=== PATIENT | female | born 1995 | race Caucasian/White ===

== ENCOUNTER 2018-11-15 19:01 | Emergency (ER) | payer OTHER ==
[2018-11-15 19:31] VITALS: BP 162/85; PULSE 112; RESP 18; TEMP 98.9
[2018-11-15] MEDS ORDERED: ACETAMINOPHEN TAB 500 MG TAB PO STA (19:36)
--- NOTE | 2018-11-15 19:36 | ED ---
General Adult HPI - General Stated complaint: Ankle injury Time Seen by Provider: 11/15/18 19:16 Source: patient, RN notes reviewed Mode of arrival: ambulatory Limitations: no limitations - History of Present Illness Initial comments: 23-year-old female presents to the emergency department for a chief complaint of left ankle pain. Patient was walking when she inverted her left ankle. This happened this morning. States it is painful to walk on it and bend. Denies any other injuries. Denies any pain in the foot. Denies hitting her head. Denies falling.Patient has no other complaints at this time including shortness of breath, chest pain, abdominal pain, nausea or vomiting, headache, or visual changes. - Related Data Allergies Allergy/AdvReac Type Severity Reaction Status Date / Time tobramycin Allergy Unknown Verified 11/15/18 19:24 Review of Systems ROS Statement: Those systems with pertinent positive or pertinent negative responses have been documented in the HPI. ROS Other: All systems not noted in ROS Statement are negative. Past Medical History Past Medical History: No Reported History History of Any Multi-Drug Resistant Organisms: None Reported Past Surgical History: No Surgical Hx Reported Past Psychological History: No Psychological Hx Reported Smoking Status: Current every day smoker Past Alcohol Use History: Occasional Past Drug Use History: None Reported General Exam Limitations: no limitations General appearance: alert, in no apparent distress Head exam: Present: atraumatic, normocephalic, normal inspection Eye exam: Present: normal appearance, PERRL, EOMI. Absent: scleral icterus, conjunctival injection, periorbital swelling ENT exam: Present: normal exam, mucous membranes moist Neck exam: Present: normal inspection. Absent: tenderness, meningismus, lymphadenopathy Respiratory exam: Present: normal lung sounds bilaterally. Absent: respiratory distress, wheezes, rales, rhonchi, stridor Cardiovascular Exam: Present: regular rate, normal rhythm, normal heart sounds. Absent: systolic murmur, diastolic murmur, rubs, gallop, clicks Extremities exam: Present: tenderness (Tenderness noted to the lateral malleolus of the left ankle. No medial malleoli tenderness. No tenderness to the fifth metatarsal.), normal capillary refill (Capillary refill less than 2 seconds, DP pulse 2+ in the left lower extremity.), joint swelling (Mild edema noted of the lateral malleolus. Skin is intact, no erythema.). Absent: full ROM (Patient has limited flexion and extension of the left ankle due to pain. Full range motion of all digits in the left foot.), calf tenderness (No tenderness of the calf.) Course Vital Signs 11/15/18 19:25 Temperature 98.9 F Pulse Rate 112 H Respiratory 18 Rate Blood Pressure 162/85 O2 Sat by Pulse 98 Oximetry Medical Decision Making - Medical Decision Making 23-year-old female presents to the emergency department for a chief complaint of left ankle injury. Patient was walking and inverted her L ankle prior to arrival. On exam there is some edema noted of the lateral malleolus. Skin is intact. Some limited range of motion of the ankle due to pain. No tenderness of the foot. X-ray shows no acute fracture or dislocation. Patient likely has a sprain of the right ankle. At this time we do not have any ankle braces in the ER so she was wrapped with an Sixto wrap. Prescription given for ankle brace. Researching given for crutches. Patient will follow-up with orthopedics and return if she has any worsening symptoms. Disposition Clinical Impression: Ankle pain, left Disposition: HOME SELF-CARE Condition: Good Instructions (If sedation given, give patient instructions): Ankle Sprain (ED) Additional Instructions: Please take Motrin and Tylenol for pain. Please rest ice and elevate the left ankle. Use crutches as needed. Follow-up with primary care and orthopedics in one to 2 days. Return to the emergency department if you have any worsening symptoms. Is patient prescribed a controlled substance at d/c from ED?: No Referrals: Suad Kessler MD [Primary Care Provider] - 1-2 days Marshal Joseph DO [Doctor of Osteopathic Medicine] - 1-2 days Time of Disposition: 20:20
--- NOTE | 2018-11-15 19:52 | XR ---
EXAMINATION TYPE: XR ankle complete LT, XR foot complete LT DATE OF EXAM: 11/15/2018 CLINICAL HISTORY: Rolling injury with pain TECHNIQUE: Frontal, lateral and oblique images of the right ankle and foot are obtained. COMPARISON: None. FINDINGS: There is no acute fracture/dislocation evident in the right ankle. The ankle mortise appe ars within normal limits. The overlying soft tissue appears unremarkable. There is no acute fracture or dislocation evident in the right foot. The joint spaces in the right f oot are preserved. Overlying soft tissue is unremarkable. IMPRESSION: There is no acute fracture or dislocation in the right ankle or foot.
== END 2018-11-15 20:29 | disposition home or self-care (01) ==
LOC: EC 19:01
DX: M25.572 Pain in left ankle and joints of left foot (principal); F17.200 Nicotine dependence, unspecified, uncomplicated; Z88.1 Allergy status to other antibiotic agents
CPT/HCPCS: 99283

== ENCOUNTER 2019-08-25 19:58 | Emergency (ER) | payer OTHER ==
[2019-08-25] MEDS ORDERED: SODIUM CHLORIDE 0.9% 1,000 ML IV STA (20:45)
--- NOTE | 2019-08-25 21:07 | ED ---
General Adult HPI - General Source: patient, RN notes reviewed Mode of arrival: ambulatory Limitations: no limitations <Mariusz Mcdaniels - Last Filed: 08/25/19 22:37> <Denisha Strauss - Last Filed: 08/29/19 02:05> - General Chief complaint: Abdominal Pain Stated complaint: Abd Pain Time Seen by Provider: 08/25/19 20:21 - History of Present Illness Initial comments: 24-year-old female presents to the emergency department for abdominal pain 3 weeks. Patient has had intermittent sharp lower abdominal pain for 3 weeks. Patient started to have diarrhea last night had about 10 episodes. This was nonbloody, non-mucousy. She is nauseous but does not have any vomiting. She does not have any fevers or chills. Patient states she has a history of constipation was concerned this could be causing her pain but when she gets the diarrhea she became confused. Patient denies dysuria. Denies any vaginal discharge. Denies any upper abdominal pain. Denies any history of abdominal surgery or abdominal pathology such as Crohn's or ulcerative colitis.Patient has no other complaints at this time including shortness of breath, chest pain, headache, or visual changes. (Mariusz Mcdaniels) - Related Data Home Medications Medication Instructions Recorded Confirmed Calcium Carb/Magnesium Hydrox 1 tab PO DAILY PRN 08/25/19 08/25/19 [Rolaids Chewable Tablet] Fluticasone Propionate [Flonase 2 spray EA NOSTRIL DAILY 08/25/19 08/25/19 Allergy Relief] Ibuprofen [Motrin] 600 mg PO DAILY PRN 08/25/19 08/25/19 Loratadine [Claritin] 10 mg PO DAILY 08/25/19 08/25/19 Medroxyprogesterone Acetate 150 mg INJ Q84D 08/25/19 08/25/19 [Depo-Provera] Omeprazole [PriLOSEC] 20 mg PO DAILY 08/25/19 08/25/19 Pepto Bismol Chewable (Unknown 4 tab PO ONCE PRN 08/25/19 08/25/19 Strength) Previous Rx's Medication Instructions Recorded Ondansetron [Zofran ODT] 4 mg PO Q8HR PRN #15 tab 08/25/19 Allergies Allergy/AdvReac Type Severity Reaction Status Date / Time tobramycin Allergy Unknown Verified 08/25/19 21:47 Review of Systems ROS Other: All systems not noted in ROS Statement are negative. <Mariusz Mcdaniels - Last Filed: 08/25/19 22:37> ROS Other: All systems not noted in ROS Statement are negative. <Denisha Strauss Ifrah - Last Filed: 08/29/19 02:05> ROS Statement: Those systems with pertinent positive or pertinent negative responses have been documented in the HPI. Past Medical History Past Medical History: No Reported History History of Any Multi-Drug Resistant Organisms: None Reported Past Surgical History: No Surgical Hx Reported Past Psychological History: No Psychological Hx Reported Smoking Status: Current every day smoker Past Alcohol Use History: Occasional Past Drug Use History: None Reported <Mariusz Mcdaniels P - Last Filed: 08/25/19 22:37> General Exam Limitations: no limitations General appearance: alert, in no apparent distress Head exam: Present: atraumatic, normocephalic, normal inspection Eye exam: Present: normal appearance, PERRL, EOMI. Absent: scleral icterus, conjunctival injection, periorbital swelling ENT exam: Present: normal exam, mucous membranes moist Neck exam: Present: normal inspection, full ROM. Absent: tenderness, meningismu s, lymphadenopathy Respiratory exam: Present: normal lung sounds bilaterally. Absent: respiratory distress, wheezes, rales, rhonchi, stridor Cardiovascular Exam: Present: regular rate, normal rhythm, normal heart sounds. Absent: systolic murmur, diastolic murmur, rubs, gallop, clicks GI/Abdominal exam: Present: soft, tenderness (RLQ tenderness without guarding or rebound), normal bowel sounds. Absent: distended, guarding, rebound, rigid Expanded GI/Abdominal exam: Present: tenderness at McBurney's Point. Absent: psoas sign, obturator sign, heel tap sign, Godfrey's sign, Rovsing's sign Back exam: Absent: CVA tenderness (R), CVA tenderness (L) Neurological exam: Present: alert <Mariusz Mcdaniels - Last Filed: 08/25/19 22:37> Course Vital Signs 08/25/19 08/25/19 20:05 23:09 Temperature 98.4 F 98.0 F Pulse Rate 98 61 Respiratory 18 16 Rate Blood Pressure 125/87 108/64 O2 Sat by Pulse 99 100 Oximetry Medical Decision Making - Lab Data Result diagrams: 08/25/19 21:21 08/25/19 21:21 <Mariusz Mcdaniels - Last Filed: 08/25/19 22:37> - Lab Data Result diagrams: 08/25/19 21:21 08/25/19 21:21 <Denisha Strauss - Last Filed: 08/29/19 02:05> - Medical Decision Making Vitals are stable. Patient does have some mild right lower quadrant pain on e xam however no rebound tenderness or guarding. CBC is unremarkable. CMP unremarkable. Urinalysis does not show any obvious signs of infection but will be cultured. Gonorrhea and chlamydia pending. HCG is negative. CT abdomen and pelvis shows no CT evidence for acute appendicitis. No suspicious acute findings to account for patient's symptoms. No suspicious adnexal masses. At this time I do not see any emergent causes of abdominal pain. Patient is actually requesting discharge stating she is hungry and wants to get food. Patient will be discharged home to follow up with GI as she may need a scope. She will return here for any worsening symptoms. (Mariusz Mcdaniels) I was available for consultation in the emergency department. The history and physical exam were done by the midlevel provider. I was consulted for this patients care. I reviewed the case with the midlevel provider and based on their presentation of the patient, I agree with the assessment, medical decision making and plan of care as documented. Chart was dictated using [employer] dictation software. Attempts were made to correct any dictation errors however some typographical errors may persist. Patient was seen during a national state of emergency due to the Covid-19 pandemic. (Denisha Strauss) - Lab Data Lab Results 08/25/19 08/25/19 08/25/19 Range/Units 20:36 20:36 20:36 WBC (3.8-10.6) k/uL RBC (3.80-5.40) m/uL Hgb (11.4-16.0) gm/dL Hct (34.0-46.0) % MCV (80.0-100.0) fL MCH (25.0-35.0) pg MCHC (31.0-37.0) g/dL RDW (11.5-15.5) % Plt Count (150-450) k/uL Neutrophils % % Lymphocytes % % Monocytes % % Eosinophils % % Basophils % % Neutrophils # (1.3-7.7) k/uL Lymphocytes # (1.0-4.8) k/uL Monocytes # (0-1.0) k/uL Eosinophils # (0-0.7) k/uL Basophils # (0-0.2) k/uL Sodium (137-145) mmol/L Potassium (3.5-5.1) mmol/L Chloride (98-107) mmol/L Carbon Dioxide (22-30) mmol/L Anion Gap mmol/L BUN (7-17) mg/dL Creatinine (0.52-1.04) mg/dL Est GFR (CKD-EPI)AfAm (>60 ml/min/1.73 sqM) Est GFR (CKD-EPI)NonAf (>60 ml/min/1.73 sqM) Glucose (74-99) mg/dL Calcium (8.4-10.2) mg/dL Total Bilirubin (0.2-1.3) mg/dL AST (14-36) U/L ALT (4-34) U/L Alkaline Phosphatase (38-126) U/L Total Protein (6.3-8.2) g/dL Albumin (3.5-5.0) g/dL Amylase (30-110) U/L Lipase (23-300) U/L Urine Color Yellow Urine Appearance Clear (Clear) Urine pH 6.0 (5.0-8.0) Ur Specific [place] 1.023 (1.001-1.035) Urine Protein Trace H (Negative) Urine Glucose (UA) Negative (Negative) Urine Ketones Negative (Negative) Urine Blood Small H (Negative) Urine Nitrite Negative (Negative) Urine Bilirubin Negative (Negative) Urine Urobilinogen <2.0 (<2.0) mg/dL Ur Leukocyte Esterase Trace H (Negative) Urine RBC 2 (0-5) /hpf Urine WBC 5 (0-5) /hpf Ur Squamous Epith Cells 5 H (0-4) /hpf Urine Bacteria Rare H (None) /hpf Urine Mucus Few H (None) /hpf Urine HCG, Qual Not Detected (Not Detectd) C. trachomatis Source See Below C.trachomatis RNA Not detected (Not detected) N. gonorrhoeae Source See Below N.gonorrhoeae RNA (TMA) Not detected (Not detected) 08/25/19 08/25/19 Range/Units 21:21 21:21 WBC 10.9 H (3.8-10.6) k/uL RBC 5.09 (3.80-5.40) m/uL Hgb 15.0 (11.4-16.0) gm/dL Hct 45.8 (34.0-46.0) % MCV 89.9 (80.0-100.0) fL MCH 29.5 (25.0-35.0) pg MCHC 32.8 (31.0-37.0) g/dL RDW 13.0 (11.5-15.5) % Plt Count 296 (150-450) k/uL Neutrophils % 68 % Lymphocytes % 22 % Monocytes % 5 % Eosinophils % 2 % Basophils % 1 % Neutrophils # 7.4 (1.3-7.7) k/uL Lymphocytes # 2.4 (1.0-4.8) k/uL Monocytes # 0.5 (0-1.0) k/uL Eosinophils # 0.3 (0-0.7) k/uL Basophils # 0.1 (0-0.2) k/uL Sodium 137 (137-145) mmol/L Potassium 4.0 (3.5-5.1) mmol/L Chloride 104 (98-107) mmol/L Carbon Dioxide 22 (22-30) mmol/L Anion Gap 11 mmol/L BUN 9 (7-17) mg/dL Creatinine 0.82 (0.52-1.04) mg/dL Est GFR (CKD-EPI)AfAm >90 (>60 ml/min/1.73 sqM) Est GFR (CKD-EPI)NonAf >90 (>60 ml/min/1.73 sqM) Glucose 92 (74-99) mg/dL Calcium 9.5 (8.4-10.2) mg/dL Total Bilirubin 1.2 (0.2-1.3) mg/dL AST 20 (14-36) U/L ALT 13 (4-34) U/L Alkaline Phosphatase 89 (38-126) U/L Total Protein 7.3 (6.3-8.2) g/dL Albumin 4.5 (3.5-5.0) g/dL Amylase 46 (30-110) U/L Lipase 50 (23-300) U/L Urine Color Urine Appearance (Clear) Urine pH (5.0-8.0) Ur Specific [place] (1.001-1.035) Urine Protein (Negative) Urine Glucose (UA) (Negative) Urine Ketones (Negative) Urine Blood (Negative) Urine Nitrite (Negative) Urine Bilirubin (Negative) Urine Urobilinogen (<2.0) mg/dL Ur Leukocyte Esterase (Negative) Urine RBC (0-5) /hpf Urine WBC (0-5) /hpf Ur Squamous Epith Cells (0-4) /hpf Urine Bacteria (None) /hpf Urine Mucus (None) /hpf Urine HCG, Qual (Not Detectd) C. trachomatis Source C.trachomatis RNA (Not detected) N. gonorrhoeae Source N.gonorrhoeae RNA (TMA) (Not detected) Disposition Is patient prescribed a controlled substance at d/c from ED?: No Time of Disposition: 22:40 <Mariusz Mcdaniels P - Last Filed: 08/25/19 22:37> <Denisha Strauss - Last Filed: 08/29/19 02:05> Clinical Impression: Abdominal pain Disposition: HOME SELF-CARE Condition: Good Instructions (If sedation given, give patient instructions): Abdominal Pain (ED) Additional Instructions: Please take Zofran as needed for nausea. Please follow-up with primary care and GI in 1-2 days. Return here to the emergency room for any worsening symptoms. Prescriptions: Ondansetron [Zofran ODT] 4 mg PO Q8HR PRN #15 tab PRN Reason: Nausea Referrals: Suad Kessler MD [Primary Care Provider] - 1-2 days
[2019-08-25 21:20] LABS: Appearance,Urine Clear (Clear); Bacteria,Urine Rare /hpf; Bilirubin,Urine Negative (Negative); Blood,Urine Small (Negative); Color,Urine Yellow; Glucose,Urine (UA) Negative (Negative); Ketones,Urine Negative (Negative); Leukocyte Esterase,Urine Trace (Negative); Mucus,Urine Few /hpf; Nitrite,Urine Negative (Negative); Protein,Urine Trace (Negative); RBC,Urine 2 /hpf (0-5); Specific Gravity,Urine 1.023 (1.001-1.035); Squamous Epithelial Cell,Urine 5 /hpf (0-4); Urobilinogen,Urine <2.0 mg/dL (<2.0); WBC,Urine 5 /hpf (0-5)
[2019-08-25 21:50] LABS: Basophils # (A) 0.1 k/uL (0-0.2); Basophils % (A) 1 %; Eosinophils # (A) 0.3 k/uL (0-0.7); Eosinophils % (A) 2 %; HCT 45.8 % (34.0-46.0); Lymphocytes # (A) 2.4 k/uL (1.0-4.8); Lymphocytes % (A) 22 %; MCH 29.5 pg (25.0-35.0); MCHC 32.8 g/dL (31.0-37.0); MCV 89.9 fL (80.0-100.0); Mean Platelet Volume 6.3; Monocytes # (A) 0.5 k/uL (0-1.0); Monocytes % (A) 5 %; Neutrophils # (A) 7.4 k/uL (1.3-7.7); Neutrophils % (A) 68 %; Platelet Count 296 k/uL (150-450); RBC 5.09 m/uL (3.80-5.40); WBC 10.9 k/uL (3.8-10.6)
--- NOTE | 2019-08-25 21:53 | CT ---
EXAMINATION TYPE: CT abdomen pelvis w con DATE OF EXAM: 08/25/2019 HISTORY: Right lower quadrant pain. CT DLP: 1066mGycm Automated Exposure Control for Dose Reduction was Utilized. CONTRAST: CT scan of the abdomen and pelvis is performed without oral but with IV Contrast, patient injected wi th 100 mL of Isovue 300. COMPARISON: None. FINDINGS: There is motion artifact making evaluation suboptimal particularly through the upper to mid abdomen greatest in the lung bases. LUNG BASES: No significant abnormality is appreciated. LIVER/GB: No significant abnormality is appreciated. PANCREAS: No significant abnormality is seen. SPLEEN: No significant abnormality is seen. ADRENALS: No significant abnormality is seen. KIDNEYS: Symmetric cortical medullary uptake and excretion without hydronephrosis seen bilaterally. BOWEL: Suboptimal evaluation without enteric contrast and patient having little intra-abdominal fat. No suspicious small or large bowel dilatation. Normal-appearing appendix is seen ascending from cecum in the right lower quadrant on coronal images 41 through 48. UTERUS/ADNEXA: Anteverted uterus. No suspicious adnexal masses. LYMPH NODES: No greater than 1cm abdominal or pelvic lymph nodes are appreciated. OSSEOUS STRUCTURES: No significant abnormality is seen. OTHER: No significant additional abnormality is seen. IMPRESSION: Suboptimal study. No CT evidence for acute appendicitis. No suspicious acute findings see n to account for patient's symptoms of right lower quadrant pain.
[2019-08-25] MEDS ORDERED: KETOROLAC 30 MG/ML 1 ML VIAL IVP STA (22:07)
[2019-08-25] MEDS ORDERED: ONDANSETRON 4 MG/2 ML VIAL IVP STA (22:07)
[2019-08-25 22:10] LABS: ALT 13 U/L (4-34); AST 20 U/L (14-36); African American GFR (CKD) >90 (>60 ml/min/1.73 sqM); Albumin 4.5 g/dL (3.5-5.0); Alkaline Phosphatase 89 U/L (38-126); Amylase 46 U/L (30-110); Anion Gap 11 mmol/L; Blood Urea Nitrogen 9 mg/dL (7-17); Calcium 9.5 mg/dL (8.4-10.2); Carbon Dioxide 22 mmol/L (22-30); Chloride 104 mmol/L (98-107); Glucose 92 mg/dL (74-99); Non-African American GFR(CKD) >90 (>60 ml/min/1.73 sqM); Sodium 137 mmol/L (137-145); Total Bilirubin 1.2 mg/dL (0.2-1.3); Total Protein 7.3 g/dL (6.3-8.2)
[2019-08-25 23:10] VITALS: BP 108/64; PULSE 61; RESP 16; TEMP 98
[2019-08-27 12:58] LABS: Chlamydia trachomatis rRNA Not detected (Not detected); Neisseria gonorrhoeae rRNA Not detected (Not detected)
== END 2019-08-25 23:16 | disposition home or self-care (01) ==
LOC: EC 19:58
DX: R10.31 Right lower quadrant pain (principal); R11.0 Nausea; F17.200 Nicotine dependence, unspecified, uncomplicated; Z79.3 Long term (current) use of hormonal contraceptives; Z79.899 Other long term (current) drug therapy; Z88.1 Allergy status to other antibiotic agents
CPT/HCPCS: 36415; 80053; 82150; 83690; 85025; 81001; 81025; 74177; 99284; 96374; 96375; 96361; J2405; J1885; Q9967; 87491

== ENCOUNTER 2020-09-10 22:28 | Emergency (ER) | payer OTHER ==
[2020-09-10 22:32] VITALS: RESP 18; TEMP 98.3
[2020-09-10] MEDS ORDERED: KETOROLAC 15 MG/ML 1 ML VIAL IVP STA (22:51)
--- NOTE | 2020-09-10 23:04 | ED ---
Chest Pain HPI - General Chief Complaint: Chest Pain Stated Complaint: Chest Pain Time Seen by Provider: 09/10/20 22:36 Source: patient Mode of arrival: ambulatory - History of Present Illness Initial Comments: Patient is a 25-year-old female presenting to the emergency Department with complaints of chest pain that started about 3 hours prior to arrival. She states she was sitting and talking to a friend of hers when she started feeling the pain. She reports that is on her lower sternum. She describes it as pressure, has been intermittent, no radiation. She states she does have a history of costochondritis. She has had similar pains in the past, she has been evaluated for them, with no acute findings. She denies a cardiac history. She is an occasional cigarette smoker, she does state daily, occasional alcohol, no other drug use. He denies any shortness of breath, no fevers or chills. She does admit to some very mild epigastric discomfort that started along with this pain. She denies any other abdominal pain, no nausea or vomiting. She denies being . She denies any recent travel, no history of blood clots, no lower extremity pain or swelling. She has no further complaints. Upon arrival to the ER, her vitals are within normal limits. - Related Data Home Medications Medication Instructions Recorded Confirmed Calcium Carb/Magnesium Hydrox 1 tab PO DAILY PRN 08/25/19 08/25/19 [Rolaids Chewable Tablet] Fluticasone Propionate [Flonase 2 spray EA NOSTRIL DAILY 08/25/19 08/25/19 Allergy Relief] Ibuprofen [Motrin] 600 mg PO DAILY PRN 08/25/19 08/25/19 Loratadine [Claritin] 10 mg PO DAILY 08/25/19 08/25/19 Medroxyprogesterone Acetate 150 mg INJ Q84D 08/25/19 08/25/19 [Depo-Provera] Omeprazole [PriLOSEC] 20 mg PO DAILY 08/25/19 08/25/19 Pepto Bismol Chewable (Unknown 4 tab PO ONCE PRN 08/25/19 08/25/19 Strength) Previous Rx's Medication Instructions Recorded Ondansetron [Zofran ODT] 4 mg PO Q8HR PRN #15 tab 08/25/19 Allergies Allergy/AdvReac Type Severity Reaction Status Date / Time tobramycin Allergy Unknown Verified 09/10/20 22:32 Review of Systems ROS Statement: Those systems with pertinent positive or pertinent negative responses have been documented in the HPI. ROS Other: All systems not noted in ROS Statement are negative. EKG Findings - EKG Comments: EKG Findings:: Normal sinus rhythm, normal ECG, no signs of acute ST segment elevation. Ventricular rate 86, ME interval 146, QT 374. Past Medical History Past Medical History: No Reported History History of Any Multi-Drug Resistant Organisms: None Reported Past Surgical History: No Surgical Hx Reported Past Psychological History: No Psychological Hx Reported Smoking Status: Current some day smoker Past Alcohol Use History: Occasional Past Drug Use History: None Reported General Exam - General Exam Comments Initial Comments: GENERAL: Patient is well-developed and well-nourished. Patient is nontoxic and in no acute distress. HEAD: Atraumatic, normocephalic. EYES: Pupils equal round and reactive to light, extraocular movements intact, sclera anicteric, conjunctiva are normal. Eyelids were unremarkable. ENT: Nares patent, oropharynx clear without exudates. Moist mucous membranes. NECK: Normal range of motion, supple without lymphadenopathy or JVD. LUNGS: Unlabored respirations. Breath sounds clear to auscultation bilaterally and equal. No wheezes rales or rhonchi. HEART: Regular rate and rhythm without murmurs, rubs or gallops. ABDOMEN: Soft, nontender, normoactive bowel sounds. No guarding, no rebound. No masses appreciated. : Deferred MUSCULOSKELETAL: Normal extremities with adequate strength and normal range of motion, no pitting or edema. No clubbing or cyanosis. NEUROLOGICAL: Patient is alert and oriented x 3. Normal speech, normal gait. PSYCH: Normal mood, normal affect. SKIN: Warm, Dry, normal turgor, no rashes or lesions noted. 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 Her vitals are stable, EKG shows no acute process. She does have history costochondritis. Denies recent travel. She denies being . Labs are within normal limits including a negative d-dimer and negative troponin. Patient's vital signs remained stable, I did give her a dose of Toradol, she reports improvement in her symptoms. Currently she is pain-free. Chest x-ray shows no acute process. Discussed these findings with the patient. This very well could be her costochondritis flared up versus indigestion. It recommended omeprazole which she does have at home. She can take Tylenol or Motrin for discomfort as well. She will follow up with her primary care physician. Return parameters were discussed with her and she verbalized understanding. Case discussed with Dr. Wiseman. Disposition Clinical Impression: Atypical chest pain Disposition: HOME SELF-CARE Condition: Stable Instructions (If sedation given, give patient instructions): Costochondritis (ED) Additional Instructions: Please return to the Emergency Department if symptoms worsen or any other concerns. Recommend Tylenol or Motrin for discomfort, trial of omeprazole (OTC) for indigestion. Follow-up with your primary care physician. Is patient prescribed a controlled substance at d/c from ED?: No Referrals: Suad Kessler MD [Primary Care Provider] - 1-2 days Time of Disposition: 00:12
--- NOTE | 2020-09-10 23:21 | XR ---
EXAMINATION TYPE: XR chest 2V DATE OF EXAM: 09/10/2020 COMPARISON: NONE HISTORY: Chest pain TECHNIQUE: 2 views FINDINGS: Heart and mediastinum are normal. Lungs are clear. Diaphragm is normal. Bony thorax is inta ct. IMPRESSION: Normal chest. Normal heart.
[2020-09-10 23:26] LABS: Basophils # (A) 0.1 k/uL (0-0.2); Basophils % (A) 1 %; Eosinophils # (A) 0.2 k/uL (0-0.7); Eosinophils % (A) 2 %; HCT 38.7 % (34.0-46.0); HGB 13.7 gm/dL (11.4-16.0); Lymphocytes % (A) 31 %; MCH 30.8 pg (25.0-35.0); MCHC 35.5 g/dL (31.0-37.0); Mean Platelet Volume 6.1; Monocytes # (A) 0.5 k/uL (0-1.0); Monocytes % (A) 6 %; Neutrophils # (A) 5.8 k/uL (1.3-7.7); Neutrophils % (A) 60 %; Platelet Count 252 k/uL (150-450); RBC 4.45 m/uL (3.80-5.40); RDW 12.3 % (11.5-15.5); WBC 9.7 k/uL (3.8-10.6)
[2020-09-10 23:50] LABS: ALT 14 U/L (4-34); AST 26 U/L (14-36); African American GFR (CKD) >90 (>60 ml/min/1.73 sqM); Albumin 3.9 g/dL (3.5-5.0); Alkaline Phosphatase 92 U/L (38-126); Anion Gap 10 mmol/L; Blood Urea Nitrogen 12 mg/dL (7-17); Calcium 9.1 mg/dL (8.4-10.2); Carbon Dioxide 22 mmol/L (22-30); Chloride 108 mmol/L (98-107); Glucose 98 mg/dL (74-99); Non-African American GFR(CKD) >90 (>60 ml/min/1.73 sqM); Potassium 3.9 mmol/L (3.5-5.1); Sodium 140 mmol/L (137-145); Total Bilirubin 1.4 mg/dL (0.2-1.3); Total Protein 6.3 g/dL (6.3-8.2)
[2020-09-11 00:28] VITALS: BP 119/81; PULSE 85
== END 2020-09-11 00:28 | disposition home or self-care (01) ==
LOC: EC 22:28
DX: R07.89 Other chest pain (principal); F17.210 Nicotine dependence, cigarettes, uncomplicated
CPT/HCPCS: 36415; 93005; 85379; 80053; 84484; 85025; 71046; 99285; 96374; J1885

== ENCOUNTER → 2021-06-18 | Outpatient (CLI) | payer OTHER ==
--- NOTE | 2021-06-18 21:45 | CT ---
EXAMINATION TYPE: CT pelvis w con DATE OF EXAM: 06/18/2021 INDICATION: Pelvic pain and peritoneal pain. Pt states she recently had US, and one ovary (she didn't know which one) was not visible CT DLP: 750 mGy.cm Automated Exposure Control for Dose Reduction was Utilized. TECHNIQUE AND CONTRAST: CT scan of the pelvis is performed with IV Contrast, patient injected with 100 mL of Isovue 300. COMPARISON: CT dated 08/25/2019 FINDINGS: Unremarkable visualized portion of the small and large bowel. Normal appendix. Unremarkable visualize d pelvic vessels. Grossly unremarkable urinary bladder. No gross uterine or adnexal mass. No patholog ically enlarged pelvic lymph nodes. No free pelvic fluid. Questionable minimal pelvic adhesions. Unre markable visualized bones. IMPRESSION: Unremarkable CT scan of the pelvis.
== END | disposition home or self-care (01) ==
LOC: RADCTMAIN 14:00
PROVIDERS: ATTEND Internal Medicine
DX: R10.2 Pelvic and perineal pain (principal)
CPT/HCPCS: 72193; Q9967

== ENCOUNTER 2022-03-08 21:35 | Emergency (ER) | payer OTHER ==
--- NOTE | 2022-03-09 01:39 | ED ---
Recheck HPI - General Chief Complaint: Needlestick/Exposure Stated Complaint: Needle stick Time Seen by Provider: 03/09/22 01:34 Source: patient, RN notes reviewed Mode of arrival: ambulatory Limitations: no limitations - History of Present Illness Initial Comments: This is a 26-year-old female who presents to the emergency department for a needle stick injury. Patient works at [employer] and was given a patient a Lovenox injection when she acquired this injury. This took place at approximately 9 AM today. She otherwise denies any concerns or complaints. Denies any fevers, chills, sore throat, cough, dyspnea, chest pain, palpitations, abdominal pain, nausea, vomiting, diarrhea, back pain, or headaches. MD Complaint: other (Needle stick injury) - Related Data Home Medications Medication Instructions Recorded Confirmed Calcium Carb/Magnesium Hydrox 1 tab PO DAILY PRN 08/25/19 08/25/19 [Rolaids Chewable Tablet] Fluticasone Propionate [Flonase 2 spray EA NOSTRIL DAILY 08/25/19 08/25/19 Allergy Relief] Ibuprofen [Motrin] 600 mg PO DAILY PRN 08/25/19 08/25/19 Loratadine [Claritin] 10 mg PO DAILY 08/25/19 08/25/19 Medroxyprogesterone Acetate 150 mg INJ Q84D 08/25/19 08/25/19 [Depo-Provera] Omeprazole [PriLOSEC] 20 mg PO DAILY 08/25/19 08/25/19 Pepto Bismol Chewable (Unknown 4 tab PO ONCE PRN 08/25/19 08/25/19 Strength) Previous Rx's Medication Instructions Recorded Ondansetron [Zofran ODT] 4 mg PO Q8HR PRN #15 tab 08/25/19 Allergies Allergy/AdvReac Type Severity Reaction Status Date / Time tobramycin Allergy Unknown Verified 09/10/20 22:32 Review of Systems ROS Statement: Those systems with pertinent positive or pertinent negative responses have been documented in the HPI. ROS Other: All systems not noted in ROS Statement are negative. Past Medical History Past Medical History: No Reported History History of Any Multi-Drug Resistant Organisms: None Reported Past Surgical History: No Surgical Hx Reported Past Psychological History: No Psychological Hx Reported Smoking Status: Current some day smoker Past Alcohol Use History: Occasional Past Drug Use History: None Reported General Exam Limitations: no limitations General appearance: alert, in no apparent distress Head exam: Present: atraumatic, normocephalic, normal inspection Respiratory exam: Present: normal lung sounds bilaterally. Absent: respiratory distress, wheezes, rales, rhonchi, stridor Cardiovascular Exam: Present: regular rate, normal rhythm, normal heart sounds. Absent: systolic murmur, diastolic murmur, rubs, gallop, clicks Neurological exam: Present: alert, oriented X3, CN II-XII intact Psychiatric exam: Present: normal affect, normal mood Skin exam: Present: warm, dry, intact, normal color. Absent: rash Course Vital Signs 03/08/22 03/09/22 21:51 01:48 Temperature 97.7 F 98.2 F Pulse Rate 100 80 Respiratory 20 16 Rate Blood Pressure 132/87 128/84 O2 Sat by Pulse 99 99 Oximetry Medical Decision Making - Medical Decision Making This is a 26-year-old female who presents to the emergency department for a needle stick injury. Was pt. sent in by a medical professional or institution? @ -No Did you speak to anyone other than the patient for history? @ -No Did you review nursing and triage notes? @ -Agree, accurate with regards to the patient's symptoms. Were old charts reviewed? @ -No Differential Diagnosis? @ -Not applicable What testing was considered but not performed? (CT, X-rays, U/S, labs)? Why? @ -None What meds were considered but not given? Why? @ -None Did you discuss the management of the patient with other professionals? @ -No Did you reconcile home meds? @ -No Was smoking cessation discussed for >3mins.? @ -No Was critical care preformed (if so, how long)? @ -No Were there social determinants of health that impacted care today? How? (Homelessness, low income, unemployed, alcoholism, drug addiction, transportation, low edu. Level, literacy, decrease access to med. care, retirement, rehab)? @ -No Was there de-escalation of care discussed even if they declined? (Discuss DNR or withdrawal of care, Hospice)? @ -No What co-morbidities impacted this encounter? (DM, HTN, Smoking, COPD, CAD, Cancer, CVA, Hep., AIDS, mental health diagnosis, sleep apnea, morbid obesity)? @ -None Was patient admitted / discharged? @ -Discharged. The required blood work was obtained and the associated paperwork was filled out accordingly. Drug Therapy requiring intensive monitoring for toxicity (Heparin, Nitro, Insulin, Cardizem)? @ -None Were any procedures done? @ -None Diagnosis/symptom? @ -Needle stick injury Acute, or Chronic, or Acute on Chronic? @ -Acute Uncomplicated (without systemic symptoms) or Complicated (systemic symptoms)? @ -Uncomplicated Side effects of treatment? @ -No treatment administered. Exacerbation, Progression, or Severe Exacerbation] @ -Not applicable Poses a threat to life or bodily function? @ -No Return precautions reviewed in depth, the patient is instructed to return to the emergency department with any new, worsening, or concerning symptoms. Patient verbalized understanding. This case was discussed in detail with the attending ED physician. Presentation, findings, and treatment plan discussed in detail as well. Disposition Clinical Impression: Needle stick injury of finger Disposition: HOME SELF-CARE Instructions (If sedation given, give patient instructions): Needle Stick Injuries (ED) Additional Instructions: Return to the emergency department with any new, worsening, or concerning symptoms. Follow up with your primary care provider in 1-2 days. Is patient prescribed a controlled substance at d/c from ED?: No Referrals: Suad Kessler MD [Primary Care Provider] - 1-2 days
[2022-03-09 01:49] VITALS: BP 128/84; PULSE 80; RESP 16; TEMP 98.2
[2022-03-09 11:49] LABS: Hepatitis B Surface AB- Quant 31.6 mIU/mL; Hepatitis B Surface Antibody Reactive (Nonreactive)
[2022-03-11 09:57] LABS: Hepatitis C IgG Antibody Nonreactive (Nonreactive)
[2022-03-11 15:08] LABS: HIV 2 AB Non-Reactive (Non-Reactive); HIV AB P24 Non-Reactive (Non-Reactive); HIV P24 AG Non-Reactive (Non-Reactive)
== END 2022-03-09 01:48 | disposition home or self-care (01) ==
LOC: EC 21:35
DX: S69.90XA Unspecified injury of unspecified wrist, hand and finger(s), initial encounter (principal); F17.200 Nicotine dependence, unspecified, uncomplicated; Z88.1 Allergy status to other antibiotic agents; W46.1XXA Contact with contaminated hypodermic needle, initial encounter
CPT/HCPCS: 36415; 86706; 86803; 87390